=== PATIENT | female | born 1975 | race Caucasian/White ===

== ENCOUNTER 2018-06-26 14:54 | Emergency (ER) | payer MEDICAID ==
[~2018-06-26] VITALS: Ht 175.3 cm; Wt 111.4 kg
[2018-06-26 15:04] VITALS: BP 112/76
== END 2018-06-26 15:54 | disposition home or self-care (01) ==
LOC: ED 15:48
DX: S40.861A Insect bite (nonvenomous) of right upper arm, initial encounter (principal); F17.210 Nicotine dependence, cigarettes, uncomplicated; W57.XXXA Bitten or stung by nonvenomous insect and other nonvenomous arthropods, initial encounter; Y93.89 Activity, other specified; Y92.89 Other specified places as the place of occurrence of the external cause; Y99.8 Other external cause status
CPT/HCPCS: 99283

== ENCOUNTER 2019-10-26 15:33 | Emergency (ER) | payer MEDICAID ==
[~2019-10-26] VITALS: Ht 175.3 cm; Wt 109.7 kg
[2019-10-26 15:35] VITALS: BP 130/79
[2019-10-26] MEDS ORDERED: PHENAZOPYRIDINE 200 MG TABLET ONE (15:48)
--- NOTE | 2019-10-26 15:52 | NUR ---
PT C/O PAINFUL URINATION X3 DAYS AND HAS PROGRESSIVELY GOTTEN WORSE. UA COLLECTED AND SENT TO LAB. MEDS ADMIN PER JAN. CALL LIGHT IN REACH. FAMILY AT BEDSIDE.
[2019-10-26] MEDS ORDERED: PHENAZOPYRIDINE 200 MG TABLET PO ONE (16:00)
[2019-10-26 16:13] LABS: CULTURE INDICATED? YES; MICROSCOPIC INDICATED
--- NOTE | 2019-10-26 16:23 | NUR ---
ALL RESULTS ARE BACK AT THIS TIME. CHART UP FOR RECHECK.
== END 2019-10-26 16:56 | disposition home or self-care (01) ==
LOC: ED 16:08
DX: N30.00 Acute cystitis without hematuria (principal); F17.200 Nicotine dependence, unspecified, uncomplicated; Z90.710 Acquired absence of both cervix and uterus
CPT/HCPCS: 81001; 87077; 87086; 87186; 99283